=== PATIENT | male | born 1980 | race African-American/Black ===

== ENCOUNTER 2024-02-19 13:39 | Emergency (ER) | payer OTHER ==
[~2024-02-19] VITALS: Ht 180.3 cm; Wt 86.8 kg
[2024-02-19] MEDS ORDERED: VALTREX1000 MG PO (14:25)
[2024-02-19] MEDS ORDERED: OLMESARTAN-HCT1 EACH PO (14:26)
[2024-02-19 15:01] VITALS: PULSE 65; RESP 16; TEMP 98.3; O2SAT 97
[2024-02-19] MEDS: TRAMADOL HCL 50 MG TAB PO ONE (15:11)
== END 2024-02-19 15:14 | disposition home or self-care (01) ==
LOC: FSED 13:51
DX: B02.29 Other postherpetic nervous system involvement (principal); I10 Essential (primary) hypertension
CPT/HCPCS: 99283